=== PATIENT | female | born 1955 | race Caucasian/White ===

== ENCOUNTER 2017-01-12 12:23 | Emergency (ER) | payer SELFPAY ==
[~2017-01-12] VITALS: Ht 154.9 cm; Wt 63.5 kg
[2017-01-12 16:55] VITALS: BP 108/66
== END 2017-01-12 16:55 | disposition home or self-care (01) ==
LOC: ED 12:23
DX: B34.9 Viral infection, unspecified (principal)
CPT/HCPCS: J0780; J1885